=== PATIENT | male | born 2000 | race African-American/Black ===

== ENCOUNTER 2023-12-08 08:14 | Emergency (ER) | payer OTHER, SELFPAY ==
[2023-12-08] MEDS ORDERED: Mag-Al Plus 1200/1200/120 MG (30 mL) UDCUP ONE (08:38)
[2023-12-08] MEDS ORDERED: Lidocaine 2% Viscous 100 ML BOTTLE ONE (08:40)
[2023-12-08 08:46] LABS: #Basophils 0.1 thou/uL (0.0-0.2); #Eosinphils 0.3 thou/uL (0.0-0.7); #Lymphocytes 1.9 thou/uL (1.20-3.40); #Monocytes 0.6 thou/uL (0.11-0.59); #Neutrophils 3.4 thou/uL (1.40-6.50); %Basophils 1.3 % (0.0-1.0); %Eosinophils 4.6 % (0.0-10.0); %Monocytes 9.3 % (0.0-10.0); %Neutrophils 54.8 % (42.0-75.0); Hematocrit 44.3 % (42.0-52.0); Hemoglobin 14.8 g/dL (14.0-18.0); Mean Corpuscular HGB CONC 33.4 g/dL (32.0-36.0); Mean Corpuscular Hemoglobin 28.6 pg (27.0-31.0); Mean Corpuscular Volume 85.6 fl (78.0-98.0); Mean Platelet Volume 7.9 fL (7.4-10.4); Platelet Count 249 10x3/uL (130-400); RBC Distribution Width 12.3 % (11.5-14.5); Red Blood Cell (RBC) Count 5.18 mill/uL (4.70-6.10); White Blood Cell (WBC) Count 6.2 10x3/uL (4.8-10.8)
[2023-12-08 09:01] LABS: ALT (SGPT) 35 U/L (8-55); AST (SGOT) 20 U/L (5-34); Albumin 4.5 g/dL (3.5-5.0); Alkaline Phosphatase 63 U/L (40-110); Anion Gap 13 mmol/L (10-20); BUN (Urea Nitrogen) 10 mg/dL (8.9-20.6); Bilirubin, Total 1.1 mg/dL (0.2-1.2); Calc. Creatinine Clearance 0 mL/min (70-130); Calcium 9.5 mg/dL (7.8-10.44); Carbon Dioxide 26 mmol/L (22-29); Chloride 106 mmol/L (98-107); Estimated GFR 126; Globulin 2.8 g/dL (2.4-3.5); Glucose 89 mg/dL (70-105); Lipase 28 U/L (8-78); Potassium 3.5 mmol/L (3.5-5.1); Protein, Total 7.3 g/dL (6.0-8.3); Sodium 141 mmol/L (136-145)
== END 2023-12-08 09:16 | disposition home or self-care (01) ==
LOC: MADERS 08:14 → EDBD 08:14 → MADERS 09:16
DX: R68.83 Chills (without fever) (principal); R10.13 Epigastric pain; M79.10 Myalgia, unspecified site
CPT/HCPCS: 80053; 83690; 85025; 93005

== ENCOUNTER 2024-02-08 23:51 | Emergency (ER) | payer SELFPAY ==
[2024-02-09] MEDS ORDERED: Ibuprofen 800 MG TAB ONE (00:10)
[2024-02-09] MEDS ORDERED: Acetaminophen 500 MG TAB ONE (00:10)
== END 2024-02-09 00:54 | disposition home or self-care (01) ==
LOC: MADERS 23:51
DX: M72.2 Plantar fascial fibromatosis (principal); F17.290 Nicotine dependence, other tobacco product, uncomplicated